=== PATIENT | female | born 1985 | race African-American/Black ===

== ENCOUNTER 2020-11-04 04:30 | Day surgery (SDC) | payer BC ==
[2020-10-29 14:36] VITALS: BMI 25.9
[2020-11-04] MEDS ORDERED: PROPOFOL 20 ML ONE ×2 (07:15)
[2020-11-04] MEDS ORDERED: SUCCINYLCHOLINE CHLORIDE 200 MG/10 ML SYRINGE ONE (07:16)
[2020-11-04] MEDS ORDERED: DEXMEDETOMIDINE HCL 200 MCG/2 ML IVPB ONE (07:21)
[2020-11-04] MEDS ORDERED: INDOMETHACIN 50 MG CAPSULE PO ONE ×2 (11:30→12:20)
[2020-11-04 18:10] VITALS: BP 115/67; PULSE 74; TEMP 98.2
== END 2020-11-04 18:16 | disposition home or self-care (01) ==
LOC: JASU-SURG 04:30
PROVIDERS: ATTEND Obstetrics & Gynecology Maternal & Fetal Medicine
PROC: 0UVC7ZZ Restriction of Cervix, Via Natural or Artificial Opening (ICD-10-PCS; principal; 2020-11-04 10:00)
DX: O34.31 Maternal care for cervical incompetence, first trimester (principal); Z3A.13 13 weeks gestation of pregnancy
CPT/HCPCS: 94760